=== PATIENT | male | born 1965 | race African-American/Black ===

== ENCOUNTER 2022-05-05 16:24 | Inpatient (IN) | payer BC, OTHER ==
[~2022-05-05] VITALS: Ht 170.2 cm; Wt 90.7 kg
[2022-05-05] MEDS ORDERED: ONDANSETRON HCL INJ 2MG/ML 2ML 2 MG/ML VIAL IV PRN ×2 (16:45→17:30)
[2022-05-05] MEDS ORDERED: Morphine 4mg INJECTION 4 MG/ML INJ IV PRN (16:45)
[2022-05-05] MEDS ORDERED: ASPIRIN 81 MG CHEW TAB PO ONE ×2 (16:45→17:30)
[2022-05-05] MEDS ORDERED: SODIUM CHLORIDE 0.9% 1000ML 1,000 ML IV ONE ×2 (16:45→17:30)
[2022-05-05 16:47] LABS: BASOPHILS % 0.4 % (0.0-1.0); EOSINOPHILS # (AUTO) 0.1 (0.0-0.4); EOSINOPHILS % 0.6 % (0.0-6.0); HEMATOCRIT 49.5 % (38.2-49.6); HEMOGLOBIN 16.1 g/dL (14.0-18.0); LYMPHOCYTES # (AUTO) 2.8 (1.0-3.2); LYMPHOCYTES % 35.6 % (18.0-39.1); MEAN CORPUSCULAR HEMOGLOBIN 29.4 pg (28-32); MEAN CORPUSCULAR HGB CONC 32.5 g/dL (31-35); MEAN CORPUSCULAR VOLUME 90.5 fL (81-99); MONOCYTES # (AUTO) 0.8 (0.2-0.8); MONOCYTES % 9.9 % (4.4-11.3); NEUTROPHILS # (AUTO) 4.1 (2.1-6.9); NEUTROPHILS % 52.9 % (38.7-80.0); PLATELET COUNT 345 x10e3/uL (140-360); RED BLOOD COUNT 5.47 x10e6/uL (4.3-5.7); RED CELL DISTRIBUTION WIDTH 14.1 % (11.7-14.4)
[2022-05-05 17:01] LABS: ANION GAP 20.7 mmol/L (8-16); CALCIUM 11.4 mg/dL (8.4-10.2); CREATININE, SERUM 2.57 mg/dL (0.72-1.25); POTASSIUM 3.7 mmol/L (3.5-5.1)
[2022-05-05 17:07] LABS: CREATINE KINASE MB 1.7 ng/mL (0-5.0)
[2022-05-05] MEDS ORDERED: SODIUM CHLORIDE FLUSH 10 ML SYR INJ PRN (17:30)
[2022-05-05] MEDS ORDERED: AMLODIPINE BESYLATE 5 MG TAB PO PRN (18:15)
[2022-05-05] MEDS: SODIUM CHLORIDE 0.45% 1,000 ML IV SCH (18:49)
[2022-05-05] MEDS: FAMOTIDINE 20 MG/2 ML VIAL IV SCH (18:49)
[2022-05-06] VITALS (9 sets, daily range): BP systolic 139–153; BP diastolic 76–95
[2022-05-06 01:53] LABS: CREATINE KINASE MB 23.8 ng/mL (0-5.0)
[2022-05-06] MEDS: SODIUM CHLORIDE 0.45% 1,000 ML IV SCH ×3 (02:39→20:27)
[2022-05-06 07:24] LABS: BASOPHILS % 0.3 % (0.0-1.0); EOSINOPHILS # (AUTO) 0.1 (0.0-0.4); EOSINOPHILS % 1.4 % (0.0-6.0); HEMATOCRIT 37.2 % (38.2-49.6); HEMOGLOBIN 12.3 g/dL (14.0-18.0); LYMPHOCYTES # (AUTO) 2.3 (1.0-3.2); LYMPHOCYTES % 29.5 % (18.0-39.1); MEAN CORPUSCULAR HEMOGLOBIN 29.6 pg (28-32); MEAN CORPUSCULAR HGB CONC 33.1 g/dL (31-35); MEAN CORPUSCULAR VOLUME 89.6 fL (81-99); MONOCYTES # (AUTO) 0.9 (0.2-0.8); NEUTROPHILS # (AUTO) 4.4 (2.1-6.9); NEUTROPHILS % 56.2 % (38.7-80.0); PLATELET COUNT 240 x10e3/uL (140-360); RED BLOOD COUNT 4.15 x10e6/uL (4.3-5.7); RED CELL DISTRIBUTION WIDTH 14.3 % (11.7-14.4)
[2022-05-06 07:42] LABS: ANION GAP 12.6 mmol/L (8-16); CALCIUM 8.4 mg/dL (8.4-10.2); CREATININE, SERUM 1.03 mg/dL (0.72-1.25); POTASSIUM 3.6 mmol/L (3.5-5.1)
[2022-05-06 07:44] LABS: CHOL/HDL RATIO 4.8 (3.9-4.7)
[2022-05-06 07:46] LABS: CREATINE KINASE MB 47.8 ng/mL (0-5.0)
[2022-05-06] MEDS: FAMOTIDINE 20 MG/2 ML VIAL IV SCH ×2 (09:19→16:33)
[2022-05-06] MEDS: CARVEDILOL 12.5 MG TAB PO SCH ×2 (09:20→16:34)
[2022-05-06] MEDS: ENOXAPARIN SODIUM INJ 100 MG/ML SYR SC SCH ×2 (09:20→20:30)
[2022-05-06] MEDS: ASPIRIN 81 MG ENTERIC COATED PO SCH (09:20)
[2022-05-06] MEDS: ATORVASTATIN 20 MG TAB PO SCH (20:27)
[2022-05-07] VITALS (7 sets, daily range): BP systolic 124–159; BP diastolic 56–89
[2022-05-07] MEDS: SODIUM CHLORIDE 0.45% 1,000 ML IV SCH ×3 (03:43→21:28)
[2022-05-07 06:31] LABS: BASOPHILS % 0.2 % (0.0-1.0); EOSINOPHILS # (AUTO) 0.1 (0.0-0.4); EOSINOPHILS % 2.2 % (0.0-6.0); HEMATOCRIT 37.4 % (38.2-49.6); HEMOGLOBIN 12.4 g/dL (14.0-18.0); LYMPHOCYTES # (AUTO) 1.8 (1.0-3.2); LYMPHOCYTES % 36.7 % (18.0-39.1); MEAN CORPUSCULAR HEMOGLOBIN 29.5 pg (28-32); MEAN CORPUSCULAR HGB CONC 33.2 g/dL (31-35); MEAN CORPUSCULAR VOLUME 88.8 fL (81-99); MONOCYTES # (AUTO) 0.6 (0.2-0.8); MONOCYTES % 13.1 % (4.4-11.3); NEUTROPHILS # (AUTO) 2.3 (2.1-6.9); NEUTROPHILS % 47.4 % (38.7-80.0); PLATELET COUNT 218 x10e3/uL (140-360); RED BLOOD COUNT 4.21 x10e6/uL (4.3-5.7); RED CELL DISTRIBUTION WIDTH 14.1 % (11.7-14.4)
[2022-05-07 06:55] LABS: ANION GAP 12.8 mmol/L (8-16); CALCIUM 8.2 mg/dL (8.4-10.2); CREATININE, SERUM 0.91 mg/dL (0.72-1.25); POTASSIUM 3.8 mmol/L (3.5-5.1)
[2022-05-07] MEDS: FAMOTIDINE 20 MG/2 ML VIAL IV SCH ×2 (08:27→16:37)
[2022-05-07] MEDS: ASPIRIN 81 MG ENTERIC COATED PO SCH (08:28)
[2022-05-07] MEDS: CARVEDILOL 12.5 MG TAB PO SCH ×3 (08:28→16:45)
[2022-05-07] MEDS: ENOXAPARIN SODIUM INJ 100 MG/ML SYR SC SCH ×2 (08:29→21:24)
[2022-05-07] MEDS: ATORVASTATIN 20 MG TAB PO SCH (21:25)
[2022-05-08] VITALS (15 sets, daily range): BP systolic 122–154; BP diastolic 77–115
[2022-05-08] MEDS: SODIUM CHLORIDE 0.45% 1,000 ML IV SCH ×3 (02:15→17:19)
[2022-05-08] MEDS: CARVEDILOL 12.5 MG TAB PO SCH ×2 (08:14→17:08)
[2022-05-08] MEDS: ASPIRIN 81 MG ENTERIC COATED PO SCH (08:14)
[2022-05-08] MEDS: FAMOTIDINE 20 MG/2 ML VIAL IV SCH ×2 (08:34→17:07)
[2022-05-08] MEDS ORDERED: MIDAZOLAM HCL 2 MG/2 ML VIAL ONE (09:36)
[2022-05-08] MEDS ORDERED: FENTANYL CITRATE/PF 100MCG/2 ML INJ ONE (09:36)
[2022-05-08] MEDS ORDERED: SODIUM CHLORIDE 0.9% 1000ML 1,000 ML ONE (09:37)
[2022-05-08] MEDS ORDERED: LIDOCAINE HCL 1% LOCAL INJ 20 ML VIAL ONE (09:37)
[2022-05-08] MEDS ORDERED: IOPAMIDOL 370 MG/ML 100 ML INFUS..BTL INJ ONE (09:37)
[2022-05-08] MEDS ORDERED: HEPARIN SOD/SOD CHLORIDE 2,000 ML ONE (09:37)
[2022-05-08] MEDS ORDERED: ATROPINE SULFATE 0.1 MG/ML 10ML SYR ONE (10:25)
[2022-05-08] MEDS ORDERED: ONDANSETRON HCL 4 MG ORAL DISINTEGRATING TAB PO PRN (11:15)
[2022-05-09] MEDS ORDERED: FAMOTIDINE 20 MG TAB PO SCH (07:30)
== END 2022-05-08 19:00 | disposition home or self-care (01) | DRG 280 ==
LOC: ER 16:45 → ERHOLD 17:32 → MED/SURG2 23:12 → OBSVTOIN 05-06 08:26
PROVIDERS: ADMIT Internal Medicine; ATTEND Internal Medicine
PROC: 4A023N7 Measurement of Cardiac Sampling and Pressure, Left Heart, Percutaneous Approach (ICD-10-PCS; principal; 2022-05-08)
PROC: B2111ZZ Fluoroscopy of Multiple Coronary Arteries using Low Osmolar Contrast (ICD-10-PCS; 2022-05-08)
PROC: B2151ZZ Fluoroscopy of Left Heart using Low Osmolar Contrast (ICD-10-PCS; 2022-05-08)
DX: I21.4 Non-ST elevation (NSTEMI) myocardial infarction (principal); N17.0 Acute kidney failure with tubular necrosis; M62.82 Rhabdomyolysis; I10 Essential (primary) hypertension; E86.0 Dehydration; E78.5 Hyperlipidemia, unspecified; F17.290 Nicotine dependence, other tobacco product, uncomplicated; I25.10 Atherosclerotic heart disease of native coronary artery without angina pectoris; Z20.822 Contact with and (suspected) exposure to COVID-19
CPT/HCPCS: 0223U; 36415; 71045; 76770; 76937; 80048; 80053; 80061; 82550; 82553; 84484; 85025; 93306; 93458; 96361; 99152; 99284; C1887; G0378; J1650; J2001; J2250; J2270; J2405; J3010; J7030; Q9967